=== PATIENT | male | born 1990 | race Caucasian/White ===

== ENCOUNTER 2018-04-14 20:16 | Emergency (ER) | payer OTHER ==
[~2018-04-14] VITALS: Ht 175.3 cm; Wt 90.7 kg
[2018-04-14 20:20] VITALS: BP_SYST 108
--- NOTE | 2018-04-14 20:20 | NUR ---
Patient to ER bed 6 to gown for evaluation. Side rails up. Report given to Thierno GONZALES.
--- NOTE | 2018-04-14 20:30 | NUR ---
Patient to ER via triage with c/o umbilical/abdominal pain that radiates to the back, abdomen is tender to palpation. Patient also c/o nausea, vomiting, and diarrhea. Patient is awake, alert and oriented in no acute distress, vital signs stable, respirations even and unlabored, skin warm and dry to touch. Awaiting evaluation by ER MD, will continue to observe and assess.
--- NOTE | 2018-04-14 20:40 | NUR ---
ER Dr. Hammond at bedside examining patient.
[2018-04-14] MEDS ORDERED: KETOROLAC TROMETHAMINE 30 MG VIAL IVP ONE (20:45)
[2018-04-14] MEDS ORDERED: NACL 0.9% 1,000 ML IV ONE (20:45)
[2018-04-14] MEDS ORDERED: ONDANSETRON HCL 4 MG/2 ML VIAL IVP ONE (20:45)
[2018-04-14 22:11] VITALS: BP_SYST 108
--- NOTE | 2018-04-14 22:11 | NUR ---
Patient given written and verbal discharge instructions and verbalizes understanding. ER MD discussed with patient the results and treatment provided. Patient in stable condition. ID arm band removed. IV catheter removed intact and dressing applied, no active bleeding. Rx of Imodium, motrin, and zofran given. Patient educated on pain management and to follow up with PMD. Pain Scale 0/10. Opportunity for questions provided and answered. Medication side effect fact sheet provided.
== END 2018-04-14 22:11 | disposition home or self-care (01) ==
LOC: SED 20:16
DX: R10.13 Epigastric pain (principal); R11.2 Nausea with vomiting, unspecified; R19.7 Diarrhea, unspecified
CPT/HCPCS: 96361; 96374; 96375; 99284; J1885; J2405; J7030